=== PATIENT | male | born 1995 | race American Indian/Alaskan Native ===

== ENCOUNTER 2017-02-11 19:39 | Emergency (ER) | payer OTHER ==
[2017-02-11 20:26] LABS: Basophils % (Auto) 0.2 % (0.0-1.8); Eosinophils % (Auto) 0.1 % (0.0-4.3); Hematocrit 48.1 % (35.5-45.6); Hemoglobin 16.2 gm/dl (11.8-15.2); Mean Corpuscular HGB Conc 34 % (32-34); Mean Corpuscular Hemoglobin 28 pg (28-32); Mean Corpuscular Volume 84 fl (84-94); Platelet Count 180 K/mm3 (140-440); Red Blood Count 5.75 M/mm3 (3.65-5.03); Red Cell Distribution Width 13.2 % (13.2-15.2); White Blood Count 12.3 K/mm3 (4.5-11.0)
[2017-02-11 20:59] LABS: Anion Gap 22 mmol/L; BUN/Creatinine Ratio 13.63; Blood Urea Nitrogen 15 mg/dL (9-20); Calcium 9.8 mg/dL (8.4-10.2); Carbon Dioxide 22 mmol/L (22-30); Glucose 93 mg/dL (75-100); Potassium 3.9 mmol/L (3.6-5.0); Sodium 141 mmol/L (137-145)
--- NOTE | 2017-02-11 22:19 | Emergency Department Report ---
HPI - General Chief Complaint: Altered Mental Status Time Seen by Provider: 02/11/17 20:03 - HPI HPI: The patient is a 21-year-old male who presents for evaluation of mental health. Per EMS the patient was found outside revealing his neck and body parts to individuals outside of a store. He is also found earlier in the day jumping into a swimming pool containing that he was attempting to retrieve a cellular phone that did not exist. The patient reports that he is in need of a cellular phone in the room that does not exist. The patient denies fever, headache, unexplained weight loss or weight gain, heat or cold intolerance, skin, hair, or nail changes, neuro deficits, homicidal ideations. ED Past Medical Hx - Past Medical History Previous Medical History?: Yes Hx Psychiatric Treatment: Yes (bipolar schizophrenia) - Social History Smoking Status: Unknown if ever smoked ED Review of Systems ROS: Stated complaint: MH EVAL/NONCOMPLIANCE OF MEDS Other details as noted in HPI Constitutional: denies: fever ENT: denies: throat or neck pain Respiratory: denies: cough, shortness of breath Cardiovascular: denies: chest pain Endocrine: denies unexplained weight loss or gain Gastrointestinal: denies: abdominal pain, nausea Genitourinary: denies: dysuria Musculoskeletal: denies: leg swelling Skin: denies: rash Neurological: denies: headache Hematological/Lymphatic: denies: easy bleeding or easy bruising Psych: reports sadness Physical Exam - Physical Exam Vital Signs: Vital Signs 02/11/17 20:23 Temperature 98.3 F Pulse Rate 101 H Respiratory 16 Rate Blood Pressure 111/86 Blood Pressure 111/86 [Right] O2 Sat by Pulse 96 Oximetry Physical Exam: General: well-nourished, well-developed, no acute distress Head: Normocephalic, atraumatic Eyes: normal sclera ENT: Mucous membranes are pale and dry Neck: trachea midline, neck supple, No neck stiffness, no cervical adenopathy Respiratory: Breath sounds equal bilaterally, no wheezing, rales, or rhonchi Cardio: S1 and S2 present, no murmurs, rubs, gallops, capillary refill is delayed Abdomen: Normoactive bowel sounds, soft abdomen, no rigidity, no guarding or rebound tenderness Musc: No pitting edema Skin: No rash Neuro: no facial drooping, normal speech Psych: Flat affect, patient delusional, poor insight, behavior extremely inappropriate, hypersexual, revealing his genitalia to the ED staff, licking the railing of the bed in a sexual manner ED Course Vital Signs 02/11/17 20:23 Temperature 98.3 F Pulse Rate 101 H Respiratory 16 Rate Blood Pressure 111/86 Blood Pressure 111/86 [Right] O2 Sat by Pulse 96 Oximetry ED Medical Decision Making - Lab Data Result diagrams: 02/11/17 20:14 02/11/17 20:14 - Medical Decision Making The patient was seen and examined by myself. The patient is placed on a property assessment monitor and continuous pulse ox. On initial evaluation, the patient was found to be in no distress. Labs are obtained. Lab results revealed elevated RBC, hemoglobin, hematocrit, consistent with his findings of dehydration, and also positive THC screen and otherwise labs are grossly unremarkable. The patient is given 1 L normal saline fluid bolus for treatment of his dehydration. The patient is medically clear. Mental health is consulted. Mental health evaluates the patient and agrees that the patient is exhibiting signs of acute psychosis. A 1013 is completed. The patient will be admitted to a psychiatric facility once bed placement is obtained. Critical care attestation.: If time is entered above; I have spent that time in minutes in the direct care of this critically ill patient, excluding procedure time. ED Disposition Clinical Impression: Acute psychosis, Dehydration Disposition: DC/TX-65 PSY HOSP/PSY UNIT Is pt being admited?: No Does the pt Need Aspirin: No Condition: Serious Referrals: PRIMARY CARE, [Primary Care Provider] - 3-5 Days Time of Disposition: 22:18
[2017-02-11 22:48] LABS: Urine Drugs of Abuse Note Disclamer
[2017-02-11 22:57] LABS: Bilirubin,Urine NEG (Negative); Blood,Urine NEG (Negative); Ketones,Urine 20 mg/dL (Negative); Leukocyte Esterase,Urine NEG (Negative); Mucus,Urine 2+ /HPF; Nitrite,Urine NEG (Negative); WBC,Urine < 1.0 /HPF (0.0-6.0)
[2017-02-12] MEDS ORDERED: NACL 0.9% 1000 ML 1,000 ML IV ONE (02:30)
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
[2017-02-12] MEDS: COGENTIN PO SCH (21:47)
--- NOTE | 2017-02-13 15:40 | Progress Note ---
Subjective - Reason for Consult Consult date: 02/13/17 Reason for consult: follow up - Chief Complaint Chief complaint: "No one could tap into what I was thinking." The patient is a 21-year-old male who presented for evaluation of mental health. Today patient calm and cooperative with a tangential thought process. He attempted to describe the events leading to his ER visit but was disorganized in thought, tangential. He denies SI/HI's, and depression. He endorses auditory hallucinations of hearing his name called and seeing clouds of light. He discussed how he is on probation and he thinks there is a warrant for his arrest. Mental Status Exam - Vital signs Last Vital Signs Temp 98.6 F 02/13/17 08:05 Pulse 77 02/13/17 08:05 Resp 18 02/13/17 08:05 BP 125/81 02/13/17 08:05 Pulse Ox 100 02/13/17 08:05 Assessment and Plan Narrative exam: ROS: (+) psychotic MSE: Appearance: calm, cooperative Behavior: regular eye contact Speech: regular rate and tone Mood: "ok" Affect: labile Thought Process: tangential Thought Content: denies SI/HI's Perceptions: AVH, non command. Grandiose Motor Activity: ambulatory Cognition: A/Ox 3 Insight: poor Judgment: poor Assessment and plan: Impression: Historical Dx: Bipolar DO. Psychosis. Substance Use DO (Marijuana). Today patient calm and cooperative with a tangential thought process. Positive for marijuana. DDx: Schizoaffective DO, Possible Substance Induced Psychosis Recommendation/Plan: Continue 1013 with placement to inpatient psy services. Continue Zyprexa 5 mg PO HS for psychotic symptoms and Cogentin 0.5 mg PO HS for EPS prevention.
[2017-02-13] MEDS: COGENTIN PO SCH (22:12)
--- NOTE | 2017-02-14 10:42 | Progress Note ---
Subjective - Reason for Consult Consult date: 02/14/17 Reason for consult: Psychiatry Follow-up - Chief Complaint Chief complaint: "I would like to get out of here" The patient is a 21-year-old male who presented for evaluation of mental health. Today patient calm and cooperative with a circumstantial thought process. He stated that he is on probation for stealing his mother's car. He is concerned about that, so he wanted to give her a call. He stated that the AH's has decreased at this time. He stated that he can "deal" with the current voices. He denies SI/HI's, AVH's, and depression. He denies any side effects of his medications. Mental Status Exam - Vital signs Last Vital Signs Temp 98.6 F 02/13/17 08:05 Pulse 62 02/13/17 22:12 Resp 17 02/14/17 10:16 BP 114/65 02/13/17 22:12 Pulse Ox 99 02/14/17 10:16 - Exam Narrative exam: MSE: Appearance: calm, cooperative Behavior: regular eye contact Speech: regular rate and tone Mood: "well" Affect: appropriate Thought Process: circumstantial Thought Content: denies SI/HI's and VH's Motor Activity: ambulatory Cognition: A/Ox 3 Insight: limited Judgment: limited Assessment and Plan Impression: Historical Dx: Bipolar DO. Psychosis. Substance Use DO (Marijuana). Today patient calm and cooperative with a circumstantial thought process. Positive for marijuana. Recommendation/Plan: Continue 101[facility], pending transport time. Continue Zyprexa 5 mg PO HS for psychotic symptoms and Cogentin 0.5 mg PO HS for EPS prevention. Discussed possible metabolic side effects reference Zyprexa with patient.
[2017-02-14] MEDS: COGENTIN PO SCH (22:00)
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
[2017-02-15] MEDS: COGENTIN PO SCH (23:05)
[2017-02-16] MEDS: COGENTIN PO SCH (22:09)
--- NOTE | 2017-02-17 11:12 | Progress Note ---
Subjective - Reason for Consult Consult date: 02/17/17 Reason for consult: Psychiatry Follow-up - Chief Complaint Chief complaint: "I am doing better" The patient is a 21-year-old male who presented for evaluation of mental health. Today patient calm and cooperative with a circumstantial thought process. He reports stressors causes him to act out with "bizarre" behavior along with the AH's. He stated that the voices has decreased, but still active. He denies sleep disturbance or a poor appetite. He denies SI/HI's and VH's. Per the staff, no behavioral disturbances overnight. Mental Status Exam - Vital signs Last Vital Signs Temp 98.4 F 02/17/17 08:56 Pulse 78 02/17/17 08:56 Resp 18 02/17/17 08:56 BP 118/63 02/17/17 08:56 Pulse Ox 97 02/17/17 08:56 - Exam Narrative exam: MSE: Appearance: calm, cooperative Behavior: regular eye contact Speech: regular rate and tone Mood: "okay" Affect: appropriate Thought Process: circumstantial Thought Content: denies SI/HI's and VH's Motor Activity: ambulatory Cognition: A/Ox 3 Insight: variable Judgment: variable Assessment and Plan Impression: Historical Dx: Bipolar DO. Psychosis. Substance Use DO (Marijuana). Today patient calm and cooperative with a circumstantial thought process. Positive for marijuana. Recommendation/Plan: Evaluate 1013 in 24 hours to determine proper dispo. Patient is pending placement at [facility], pending transport time. Continue Zyprexa 5 mg PO HS for psychotic symptoms and Cogentin 0.5 mg PO HS for EPS prevention. Discussed possible metabolic side effects reference Zyprexa with patient.
[2017-02-17] MEDS: COGENTIN PO SCH (22:26)
--- NOTE | 2017-02-18 11:39 | Progress Note ---
Subjective - Reason for Consult Consult date: 02/18/17 Reason for consult: Psychiatry Follow-up - Chief Complaint Chief complaint: "When will I leave" The patient is a 21-year-old male who presented for evaluation of mental health. Today patient calm and cooperative with a circumstantial thought process. He stated seeing moving objects this morning. He stated that this is something new, but has happened in the past. He stated getting help for his mental instability is guerrier. He denies SI/HI's and depression. Per the staff, no behavioral disturbances overnight. Mental Status Exam - Vital signs Last Vital Signs Temp 98 F 02/18/17 07:42 Pulse 60 02/18/17 07:42 Resp 14 02/18/17 07:42 BP 99/62 02/18/17 07:42 Pulse Ox 100 02/18/17 07:42 - Exam Narrative exam: MSE: Appearance: calm, cooperative Behavior: regular eye contact Speech: regular rate and tone Mood: "not sure" Affect: flat Thought Process: circumstantial Thought Content: denies SI/HI's Motor Activity: ambulatory Cognition: A/Ox 3 Insight: limited Judgment: limited Assessment and Plan Impression: Historical Dx: Bipolar DO. Psychosis. Substance Use DO (Marijuana). Today patient calm and cooperative with a circumstantial thought process. Positive for marijuana. Recommendation/Plan: Continue 1013 with placement to [facility] today pending transport time. Continue Zyprexa 5 mg PO HS for psychotic symptoms and Cogentin 0.5 mg PO HS for EPS prevention. Discussed possible metabolic side effects reference Zyprexa with patient.
--- NOTE | 2017-02-18 12:58 | Emergency Department Report ---
Blank Doc - Documentation Documentation: This is a patient that has been seen and discharged by the psychiatric staff. They requested that I printed out discharge instructions with follow-up to [facility]. They have also requested that the patient be continued on Geodon 20 mg twice a day. They have rescinded his 1013.
[2017-02-18 13:46] VITALS: BP 114/69
== END 2017-02-18 18:52 ==
LOC: ED 19:39 → EEVIPCON 19:39 → ED 02-18 18:52
DX: F23 Brief psychotic disorder (principal); E86.0 Dehydration; F31.9 Bipolar disorder, unspecified; F20.9 Schizophrenia, unspecified
CPT/HCPCS: 36415; 80048; 80307; 81001; 85025; 96360; 96361; 99285; G0480; J7030; 80320

== ENCOUNTER 2017-03-20 20:11 | Emergency (ER) | payer OTHER ==
[2017-03-20 20:34] VITALS: BP 132/88
[2017-03-20 20:39] LABS: Basophils % (Auto) 0.3 % (0.0-1.8); Eosinophils % (Auto) 0.8 % (0.0-4.3); Hematocrit 43.5 % (35.5-45.6); Hemoglobin 14.7 gm/dl (11.8-15.2); Mean Corpuscular HGB Conc 34 % (32-34); Mean Corpuscular Hemoglobin 29 pg (28-32); Mean Corpuscular Volume 86 fl (84-94); Platelet Count 146 K/mm3 (140-440); Red Blood Count 5.08 M/mm3 (3.65-5.03); White Blood Count 7.5 K/mm3 (4.5-11.0)
[2017-03-20 20:54] LABS: Urine Drugs of Abuse Note Disclamer
[2017-03-20 21:00] LABS: Anion Gap 18 mmol/L; Blood Urea Nitrogen 13 mg/dL (9-20); Calcium 9.2 mg/dL (8.4-10.2); Carbon Dioxide 25 mmol/L (22-30); Chloride 101.9 mmol/L (98-107); Glucose 93 mg/dL (75-100); Potassium 4.5 mmol/L (3.6-5.0); Sodium 140 mmol/L (137-145)
[2017-03-20 21:02] LABS: Bilirubin,Urine NEG (Negative); Blood,Urine NEG (Negative); Ketones,Urine NEG (Negative); Leukocyte Esterase,Urine NEG (Negative); Mucus,Urine FEW /HPF; Nitrite,Urine NEG (Negative); Protein,Urine <15 mg/dL mg/dL (Negative)
[2017-03-20 21:03] LABS: WBC,Urine < 1.0 /HPF (0.0-6.0)
--- NOTE | 2017-03-20 21:30 | Emergency Department Report ---
ED Psych HPI - General Chief Complaint: Psych Stated Complaint: MH Time Seen by Provider: 03/20/17 21:17 Source: patient Mode of arrival: Ambulatory - History of Present Illness Initial Comments: Physical male history of bipolar and schizophrenia came with suicidal thoughts he stated that he is being hearing voices telling him to hurt himself. Patient stated that he like aggression. His suicidal plan is to jump in front of a moving car. Denied any homicidal ideation. MD Complaint: suicidal ideation, feels depressed -: Gradual Associated Psychiatric Symptoms: depression, suicidal ideation, racing thoughts , auditory hallucinations, visual hallucinations, delusions History of same: Yes Quality: constant Improves With: none Worsens With: none Associated Symptoms: denies other symptoms If Self Harm: admits thoughts of, has plan (jump infront of a moving car) - Related Data Home Medications Medication Instructions Recorded Confirmed Last Taken Depakote 500 mg PO BID 03/20/17 03/20/17 Unknown Previous Rx's Medication Instructions Recorded Last Taken Type Ziprasidone [Geodon] 20 mg PO BID #60 capsule 02/18/17 Unknown Rx Allergies Allergy/AdvReac Type Severity Reaction Status Date / Time No Known Allergies Allergy Verified 03/20/17 20:48 ED Review of Systems ROS: Stated complaint: MH Other details as noted in HPI Comment: All other systems reviewed and negative Constitutional: denies: chills, fever ENT: denies: ear pain, throat pain, dental pain, hearing loss Respiratory: denies: cough, shortness of breath Cardiovascular: denies: chest pain, palpitations Gastrointestinal: denies: abdominal pain, nausea, vomiting Skin: denies: rash, lesions Psychiatric: depression, auditory hallucinations, visual hallucinations, suicidal thoughts. denies: homicidal thoughts ED Past Medical Hx - Past Medical History Previous Medical History?: Yes Hx Psychiatric Treatment: Yes (bipolar schizophrenia) - Surgical History Past Surgical History?: No - Social History Smoking Status: Current Every Day Smoker Substance Use Type: Alcohol, Marijuana, Other - Medications Home Medications: Home Medications Medication Instructions Recorded Confirmed Last Taken Type Ziprasidone [Geodon] 20 mg PO BID #60 capsule 02/18/17 03/20/17 Unknown Rx Depakote 500 mg PO BID 03/20/17 03/20/17 Unknown History ED Physical Exam - General Limitations: No Limitations General appearance: alert, in no apparent distress - Head Head exam: Present: atraumatic, normocephalic - Eye Eye exam: Present: normal appearance - ENT ENT exam: Present: normal exam - Neck Neck exam: Present: normal inspection - Respiratory Respiratory exam: Present: normal lung sounds bilaterally. Absent: respiratory distress, wheezes, rales, rhonchi, decreased breath sounds, prolonged expiratory - Cardiovascular Cardiovascular Exam: Present: regular rate, normal rhythm, normal heart sounds - GI/Abdominal GI/Abdominal exam: Present: soft. Absent: distended, tenderness, guarding, rebound - Back Exam Back exam: Present: normal inspection. Absent: CVA tenderness (R), CVA tenderness (L) - Neurological Exam Neurological exam: Present: alert, oriented X3, CN II-XII intact - Skin Skin exam: Present: warm, intact, normal color ED Course Vital Signs 03/20/17 20:22 Temperature 99.1 F Pulse Rate 96 H Respiratory 18 Rate Blood Pressure 132/88 [Right] O2 Sat by Pulse 99 Oximetry ED Medical Decision Making - Lab Data Result diagrams: 03/20/17 20:30 03/20/17 20:30 Critical care attestation.: If time is entered above; I have spent that time in minutes in the direct care of this critically ill patient, excluding procedure time. ED Disposition Clinical Impression: Acute psychosis, Suicidal ideation Disposition: DC/TX-65 PSY HOSP/PSY UNIT Is pt being admited?: No Condition: Stable Referrals: PRIMARY CARE, [Primary Care Provider] - 3-5 Days
[2017-03-20] MEDS ORDERED: GEODON IM ONE (21:39)
[2017-03-20] MEDS ORDERED: WATER FOR INJ (PF) 10 ML ONE (21:59)
== END 2017-03-20 23:35 ==
LOC: EEVIPCON 20:11 → ED 20:11
DX: F31.9 Bipolar disorder, unspecified (principal); F20.9 Schizophrenia, unspecified; F17.210 Nicotine dependence, cigarettes, uncomplicated; F12.10 Cannabis abuse, uncomplicated
CPT/HCPCS: 36415; 80048; 80307; 81001; 85025; 96372; 99285; G0480; J3486; 80320